=== PATIENT | female | born 1985 | race Caucasian/White ===

== ENCOUNTER → 2016-11-27 | Outpatient (CLI) | payer OTHER ==
--- NOTE | 2016-11-28 04:20 | REP ---
Clinical: Anatomical evaluation. Comparison: None . Findings: Examination demonstrates a single live intrauterine in transverse (head to maternal right side) presentation. motion is identified by technologist. Placenta is noted posteriorly and grade zero without evidence for placenta previa or abruption. Amniotic fluid volume is normal. Cervix measures 4.3 cm in length and appears closed. No evidence for nuchal cord. Gestational age by LMP 20 weeks 3 day with CRISTHIAN is 04/13/2017 . Gestational age by current measurements 20 weeks 4 day with CRISTHIAN 04/12/2017 FHR equals 144 beats per minute. BPD 4.8 cm 20 weeks 4 days HC 17.9 cm 20 weeks 2 days AC 15.5 cm 20 weeks 5 day FL 3.6 cm 21 weeks 2 days HL 3.5 cm 22 weeks 0 days HC/AC ratio 1.15 Estimated weight 383 grams ( 63rd percentile). Anatomical assessment demonstrates normal structures including cranium, choroid plexus, cavum, cerebellum/posterior fossa, facial features, lungs, diaphragm, stomach, cord insertion/three-vessel cord, kidneys/bladder, and extremities. Impression: Single live intrauterine in transverse lie demonstrating appropriate interval growth. Limited evaluation of the heart/ventricular outflow tracts and spine. Remainder of the anatomical assessment is complete and normal. Signed by Sal Alas MD 11/28/2016 04:11 A
== END ==
LOC: M SMT 13:48
PROVIDERS: ATTEND Obstetrics & Gynecology
DX: Z34.82 Encounter for supervision of other normal pregnancy, second trimester (principal); Z3A.20 20 weeks gestation of pregnancy

== ENCOUNTER → 2016-11-29 | Outpatient (CLI) | payer OTHER ==
[2016-11-29 13:38] LABS: FREE T4 1.3 NG/DL (0.76-1.46)
== END ==
LOC: M SMT 09:37
PROVIDERS: ATTEND Obstetrics & Gynecology
DX: Z34.82 Encounter for supervision of other normal pregnancy, second trimester (principal); E03.9 Hypothyroidism, unspecified

== ENCOUNTER → 2016-12-25 | Outpatient (CLI) | payer OTHER ==
--- NOTE | 2016-12-25 08:59 | REP ---
Clinical: Anatomical evaluation. Comparison: 11/27/2016 . Findings: Examination demonstrates a single live intrauterine in cephalic presentation. motion is identified by technologist. Placenta is noted posteriorly and grade zero without evidence for placenta previa or abruption. Amniotic fluid volume is normal. Cervix measures 4.1 cm in length and appears closed. No evidence for nuchal cord. Gestational age by LMP 24 weeks 3 days with CRISTHIAN 04/13/2017 . Gestational age by current measurements 24 weeks 3 days with CRISTHIAN 04/13/2017 . FHR equals 163 beats per minute. Estimated weight 751 grams ( 59th percentile). Anatomical assessment demonstrates normal structures including cranium, choroid plexus, cavum, cerebellum/posterior fossa, facial features, lungs, four-chamber heart/ventricular outflow tracts, diaphragm, stomach, cord insertion/three-vessel cord, kidneys/bladder, spine, and extremities. Impression: Single live intrauterine in cephalic presentation demonstrating appropriate interval growth. Anatomical assessment is complete and normal. Signed by Sal Alas MD 12/25/2016 08:51 A
== END ==
LOC: M SMT 07:55
PROVIDERS: ATTEND Obstetrics & Gynecology
DX: O99.282 Endocrine, nutritional and metabolic diseases complicating pregnancy, second trimester (principal)

== ENCOUNTER → 2017-01-18 | Outpatient (CLI) | payer OTHER ==
[2017-01-18 13:07] LABS: BASO % 0.4 % (0.0-1.0); EOS # 0.1 K/mm3 (0.0-0.50); EOS % 1.4 % (0.0-3.0); LARGE UNSTAINED CELL # 0.1 K/mm3 (0.0-0.4); LARGE UNSTAINED CELL % 0.8 % (0.0-4.0); LYMPH # 1.5 K/mm3 (1.5-4.5); LYMPH % 21.5 % (24.0-44.0); MEAN CORPUSCULAR HEMOGLOBIN 30.9 pg (27.0-33.0); MEAN CORPUSCULAR HGB CONC 33.3 g/dl (32.0-36.5); MEAN CORPUSCULAR VOLUME 92.6 fl (80.0-96.0); MONO # 0.3 K/mm3 (0.0-0.8); NEUTROPHILS # 4.9 K/mm3 (1.8-7.7); NEUTROPHILS % 70.9 % (36.0-66.0); PLATELET COUNT, AUTOMATED 213 k/mm3 (150-450); RED CELL DISTRIBUTION WIDTH 12.4 % (11.5-14.5); WHITE BLOOD COUNT 6.8 K/mm3 (4.0-10.0)
[2017-01-18 13:28] LABS: FREE T4 1.09 NG/DL (0.76-1.46)
== END ==
LOC: M SMT 08:21
PROVIDERS: ATTEND Specialist
DX: O99.282 Endocrine, nutritional and metabolic diseases complicating pregnancy, second trimester (principal)

== ENCOUNTER → 2017-02-12 | Outpatient (CLI) | payer OTHER ==
--- NOTE | 2017-02-12 11:33 | REP ---
OB ULTRASOUND: Real-time sonographic evaluation of the gravid uterus is performed. There is a single living intrauterine gestation. Estimated gestational age 31 weeks 3 days. EDC 04/13/2012. Today's measurements indicate appropriate growth. BPD 80 mm = 32 weeks 0 days, 58th percentile HC 287 mm = 32 weeks 4 days, 53rd percentile AC 271 mm = 31 weeks 1 day, 47th percentile Femur length 63 mm = 32 weeks 4 days, 67th percentile HC/AC ratio 1.06 within normal range. Estimated weight 1817 grams, 48th percentile. Cervix is closed and measures 3.9 cm in length. heart rate 139 beats per minute. Amniotic fluid within normal limits. IRMA 17.1 within normal range of 8.7 to 24.0. S/D ratio 2.88 within normal range of 2.5 to 2.5. RI 0.65 within normal range of 0.59 to 0.75. The stomach, three vessel cord, kidneys, and bladder are visualized and are grossly unremarkable. position vertex. Placenta posterior with no previa. IMPRESSION: Appropriate growth as above. Signed by Jeremi Bui MD 02/12/2017 04:36 P
== END ==
LOC: M SMT 08:20
PROVIDERS: ATTEND Obstetrics & Gynecology
DX: O26.843 Uterine size-date discrepancy, third trimester (principal); Z3A.31 31 weeks gestation of pregnancy

== ENCOUNTER → 2017-03-22 | Outpatient (REF) | payer OTHER | LOC: M LAB REF 16:54 | PROVIDERS: ATTEND Obstetrics & Gynecology | DX: Z34.83 Encounter for supervision of other normal pregnancy, third trimester (principal) ==

== ENCOUNTER 2017-04-06 05:41 | Inpatient (IN) | payer OTHER ==
[~2017-04-06] VITALS: Ht 154.9 cm; Wt 92.1 kg
[2017-04-06] VITALS (9 sets, daily range): BP systolic 104–125; BP diastolic 53–80
[~2017-04-06 05:41] MED LIST: LEVO200T4 PO; LEVO25TA5 PO; PRENTAB55 PO
[2017-04-06 06:41] LABS: MEAN CORPUSCULAR HEMOGLOBIN 30.7 pg (27.0-33.0); MEAN CORPUSCULAR HGB CONC 34.3 g/dl (32.0-36.5); MEAN CORPUSCULAR VOLUME 89.5 fl (80.0-96.0); RED CELL DISTRIBUTION WIDTH 13.3 % (11.5-14.5); WHITE BLOOD COUNT 7.8 K/mm3 (4.0-10.0)
[2017-04-06] MEDS ORDERED: ceFAZolin 2 GM/D5W 50 ML IV BAG (J0690) As Ordered ONE (07:15)
[2017-04-06] MEDS ORDERED: BICITRA 30ML SOLN UDC As Ordered ONE (07:15)
[2017-04-06] MEDS ORDERED: MORPHINE PRES-FREE INJ 10 MG/10 ML VIAL (J2274) As Ordered ONE (07:24)
[2017-04-06] MEDS ORDERED: OXYTOCIN INJ 10 UNITS/ML VIAL (J2590) As Ordered ONE ×3 (07:25→08:31)
[2017-04-06] MEDS ORDERED: NALBUPHINE HCL 10 MG/ML AMP (J2300) IV PRN ×2 (07:52→09:30)
[2017-04-06] MEDS ORDERED: NALOXONE INJ 0.4 MG/1 ML VIAL (J2310) IV PRN ×2 (07:52)
[2017-04-06] MEDS ORDERED: ONDANSETRON 4MG/2ML VIAL (J2405) IV PRN ×2 (07:52→09:30)
[2017-04-06] MEDS ORDERED: METOCLOPRAMIDE INJ 10MG/2ML VIAL (J2765) IV PRN (07:52)
[2017-04-06] MEDS ORDERED: PHENYLephrine HCL 500 MCG/5 ML (100MCG/ML) SYRINGE (J2370) As Ordered ONE (08:01)
[2017-04-06] MEDS ORDERED: ePHEDrine SULFATE 25 MG/5 ML(5MG/ML) SYRINGE As Ordered ONE (08:01)
[2017-04-06] MEDS ORDERED: KETOROLAC 60 MG/2 ML VIAL (J1885) As Ordered ONE (08:47)
[2017-04-06] MEDS ORDERED: LR 1,000 ML IV SCH (08:57)
[2017-04-06] MEDS ORDERED: PERCOCET 5MG/325MG TAB PO PRN (09:00)
[2017-04-06] MEDS: PRENATAL VITAMIN TAB PO SCH (09:00)
[2017-04-06] MEDS ORDERED: MEASLES,MUMPS,RUBELLA VACCINE INJ (MMR-II) (90707) SC SCH (09:00)
[2017-04-06] MEDS ORDERED: OXYTOCIN DRIP 30 UNITS in APPROPRIATE DILUENT 1 EA IV ONE (09:00)
[2017-04-06] MEDS ORDERED: RHOGAM 300 MCG (1500 IU) INJ (J2790) IM SCH (09:00)
[2017-04-06] MEDS ORDERED: fentaNYL 100 MCG/2 ML INJECTION (J3010) IV PRN (09:30)
[2017-04-06] MEDS ORDERED: diphenhydrAMINE INJ 50MG/ML VIAL (J1200) IV PRN (09:30)
[2017-04-06] MEDS ORDERED: MEPERIDINE INJ 25 MG/ML VIAL (J2175) IV PRN (09:30)
[2017-04-06] MEDS: KETOROLAC 30 MG/ML VIAL (J1885) IV SCH ×2 (14:54→21:17)
[2017-04-07 02:08] VITALS: BP 126/69
[2017-04-07] MEDS: KETOROLAC 30 MG/ML VIAL (J1885) IV SCH (03:16)
[2017-04-07 05:38] VITALS: BP 118/64
[2017-04-07 06:22] LABS: MEAN CORPUSCULAR HEMOGLOBIN 30.7 pg (27.0-33.0); MEAN CORPUSCULAR HGB CONC 33.8 g/dl (32.0-36.5); MEAN CORPUSCULAR VOLUME 90.8 fl (80.0-96.0); RED CELL DISTRIBUTION WIDTH 13.4 % (11.5-14.5)
[2017-04-07] MEDS: PRENATAL VITAMIN TAB PO SCH (08:29)
[2017-04-07] MEDS ORDERED: ADACEL/BOOSTRIX VACCINE (DIPHTH/PERTUSS/ACELL/TETANUS)0.5ML SYR (90715) IM ONE (09:00)
[2017-04-07 10:00] VITALS: BP 104/64
[2017-04-07] MEDS: LEVOTHYROXINE 0.1 MG TAB (100 MCG) PO SCH (11:19)
[2017-04-07] MEDS: IBUPROFEN 800 MG TAB PO SCH ×2 (11:20→18:08)
[2017-04-07] MEDS: PERCOCET 5MG/325MG TAB PO PRN ×3 (13:15→20:41)
[2017-04-07 14:00] VITALS: BP 117/57
[2017-04-07] MEDS ORDERED: SIMETHICONE 80 MG CHEW TAB PO PRN (17:45)
[2017-04-07 18:08] VITALS: BP 127/69
[2017-04-07] MEDS: DOCUSATE SODIUM 100 MG CAP PO PRN (18:08)
[2017-04-07 21:58] VITALS: BP 119/61
[2017-04-08] MEDS: PERCOCET 5MG/325MG TAB PO PRN ×3 (00:42→09:53)
[2017-04-08] MEDS: IBUPROFEN 800 MG TAB PO SCH ×2 (02:27→11:37)
[2017-04-08] MEDS: LEVOTHYROXINE 0.1 MG TAB (100 MCG) PO SCH (05:43)
[2017-04-08 05:47] VITALS: BP 122/65
[2017-04-08] MEDS ORDERED: OXYC1TAB23 PO (06:57)
[2017-04-08] MEDS ORDERED: IBUP600T26 PO (06:58)
[2017-04-08] MEDS ORDERED: COLA100C3 PO (06:59)
[2017-04-08] MEDS ORDERED: ZOFR4TAB3 PO (07:00)
[2017-04-08] MEDS ORDERED: LEVO100T5 PO (07:24)
[2017-04-08] MEDS: PRENATAL VITAMIN TAB PO SCH (07:50)
[2017-04-08] MEDS: DOCUSATE SODIUM 100 MG CAP PO PRN (07:50)
[2017-04-08] MEDS ORDERED: PERCOCET PO (09:37)
[2017-04-08] MEDS ORDERED: MOTR200T44 PO (09:37)
[2017-04-08] MEDS ORDERED: LEVO2TA PO (09:37)
[2017-04-08] MEDS ORDERED: MYLI40DR PO (09:37)
[2017-04-08] MEDS ORDERED: PERC5TAB6 PO (09:37)
== END 2017-04-08 11:45 | disposition home or self-care (01) | DRG 540 ==
LOC: M LDI 05:41 → M OBS 10:30
PROVIDERS: ADMIT Obstetrics & Gynecology; ATTEND Obstetrics & Gynecology
PROC: 0UB70ZZ Excision of Bilateral Fallopian Tubes, Open Approach (ICD-10-PCS; 2017-04-06)
PROC: 10D00Z1 Extraction of Products of Conception, Low, Open Approach (ICD-10-PCS; principal; 2017-04-06 07:30)
DX: O34.211 Maternal care for low transverse scar from previous cesarean delivery (principal); E03.9 Hypothyroidism, unspecified; Z37.0 Single live birth; Z3A.39 39 weeks gestation of pregnancy; Z30.2 Encounter for sterilization; O99.284 Endocrine, nutritional and metabolic diseases complicating childbirth

== ENCOUNTER → 2022-04-24 | Outpatient (REF) | payer BC ==
[~2022-04-24] MED LIST changes: +COLA100C5 PO; +IBUP-1022 PO; +LEVO100T5 PO; +LEVO2TA PO; +MOTR200T44 PO; +MYLI40DR PO; +OXYC1TAB23 PO; +PERC5TAB12 PO; +PERCOCET PO; +ZOFR4TAB14 PO
== END ==
LOC: M LAB REF 13:08
PROVIDERS: ATTEND Nurse Practitioner Adult Health
DX: E03.9 Hypothyroidism, unspecified (principal)

== ENCOUNTER → 2023-10-17 | Outpatient (REF) | payer BC | LOC: M LAB REF 13:03 | PROVIDERS: ATTEND Pediatrics | DX: J02.9 Acute pharyngitis, unspecified (principal) ==